=== PATIENT | female | born 1995 | race Caucasian/White ===

== ENCOUNTER 2018-10-14 13:50 | Inpatient (IN) | payer OTHER ==
[~2018-10-14 13:50] MED LIST: ISOVUE-370 76%-LOCM 1 ML ONE
[2018-10-14] MEDS ORDERED: Acetaminophen 325 MG TAB ONE (14:08)
[2018-10-14 14:33] LABS: #Monocytes 0.5 thou/uL (0.11-0.59); #Neutrophils 9.3 thou/uL (1.40-6.50); %Basophils 0.2 % (0.0-1.0); %Eosinophils 0.2 % (0.0-10.0); %Lymphocytes 9.2 % (21.0-51.0); %Monocytes 4.5 % (0.0-10.0); %Neutrophils 85.9 % (42.0-75.0); Hemoglobin 14.5 g/dL (12.0-16.0); Mean Corpuscular Hemoglobin 31.6 pg (27.0-31.0); Mean Corpuscular Volume 90.2 fL (78.0-98.0); Mean Platelet Volume 6.7 fL (7.4-10.4); Platelet Count 448 thou/uL (130-400); RBC Distribution Width 11.1 % (11.5-14.5); White Blood Cell (WBC) Count 10.8 thou/uL (4.8-10.8)
[2018-10-14 14:59] LABS: ALT (SGPT) 12 U/L (8-55); AST (SGOT) 18 U/L (5-34); Albumin 4.6 g/dL (3.5-5.0); Alkaline Phosphatase 56 U/L (40-150); Anion Gap 19 mmol/L (10-20); BUN (Urea Nitrogen) 13 mg/dL (7.0-18.7); Bilirubin, Total 0.7 mg/dL (0.2-1.2); Calc. Creatinine Clearance 0 mL/min (70-130); Calcium 10.4 mg/dL (7.8-10.44); Carbon Dioxide 19 mmol/L (22-29); Chloride 101 mmol/L (98-107); Estimated GFR-MDRD 88; Globulin 4.4 g/dL (2.4-3.5); Glucose 98 mg/dL (70-105); Potassium 3.1 mmol/L (3.5-5.1); Sodium 136 mmol/L (136-145)
[2018-10-14 15:08] LABS: BHCG - Serum Negative (NEGATIVE); INR-International Normal Ratio 1.1; PTT 31.6 SEC (22.9-36.1); Pregs Control Background? CLEAR/WHITE (CLR/WHITE); Pregs Control Bar Appear? YES (CONTROL BAR); Prothrombin Time 14.2 SEC (12.0-14.7)
--- NOTE | 2018-10-14 15:48 | CT ---
EXAM: CT pulmonary angiogram with IV contrast and 3-D MIP reconstructions PROVIDED CLINICAL HISTORY: None COMPARISON: None FINDINGS: There is no evidence for central or segmental pulmonary embolus. There is circumferential subpleural interstitial thickening involving primarily the lower to midlung zones bilaterally. The lungs are otherwise free of significant opacity. No pleural fluid or pneumothorax apparent. No evidence for tho racic lymph node enlargement. The airway appears patent and of normal caliber. Partially visualized ill-defined splenic hypodensity posteriorly inferiorly. This may be on the basis of phase of contrast . However, there is an apparent adjacent soft tissue density immediately medial to this portion of the spleen. This could represent a small splenule no these findings are incompletely characterized on the basis of this study. The osseous structures demonstrate no concerning lytic or blastic lesions. IMPRESSION: 1. No evidence for central or segmental pulmonary embolus. 2. Circumferential subpleural interstitial thickening involving the mid to lower lung zones bilateral ly, etiology and significance of which are uncertain. Correlation with concerns for infectious or inflammatory process recommended. 3. Ill-defined splenic hypodensities, potentially artifactual the basis of phase of contrast but soft tissue density adjacent to this region raises concern for other process such as infection. Follow-up CT of the abdomen with IV contrast in the portal venous phase is recommended.
[2018-10-14 16:03] LABS: Bacteria/HPF None Seen HPF (None Seen); Bilirubin Negative (Negative); Blood, Urine 1+ (Negative); Clarity Clear (Clear); Glucose, Urine (Dipstick) Normal (Negative); Leukocyte Negative Leu/uL (Negative); Mucous/LPF 1+ LPF (<2+); Nitrite Negative (Negative); Protein, Urine (Dipstick) Negative (Neg-Trace); Urobilinogen Normal mg/dL (Less than 2); WBC/HPF 0-3 HPF (0-3)
[2018-10-14] MEDS ORDERED: cefTRIAXone\\ROCEPHIN 2 GM VIAL ONE (16:38)
[2018-10-14] MEDS ORDERED: Azithromycin 500 MG VIAL ONE (17:54)
[2018-10-14 18:19] LABS: Troponin I Less than 0.010 ng/mL (< 0.028)
[2018-10-14] MEDS ORDERED: Sodium Chloride 0.9% 10 ML ONE (19:19)
[2018-10-14] MEDS ORDERED: Acetaminophen 325 MG TAB PO PRN (19:27)
[2018-10-14] MEDS ORDERED: Ondansetron PF 4 MG/2 ML Vial IVP PRN (19:27)
[2018-10-14] MEDS ORDERED: Ondansetron ODT 4 MG TAB SL PRN (19:27)
[2018-10-14 20:08] VITALS: BP 123/77; BMI 21.4
[2018-10-14] MEDS: Sodium Chloride 0.9% 1,000 ML IV SCH ×2 (20:20→23:48)
[2018-10-14 20:37] LABS: Troponin I Less than 0.010 ng/mL (< 0.028)
[2018-10-14] MEDS ORDERED: Potassium Chloride 20 MEQ TAB PO SCH (23:15)
[2018-10-15] MEDS ORDERED: Acetaminophen 325 MG TAB PO PRN (05:22)
[2018-10-15 08:07] LABS: #Lymphocytes 0.9 thou/uL (1.20-3.40); #Monocytes 0.5 thou/uL (0.11-0.59); %Basophils 0.1 % (0.0-1.0); %Eosinophils 0.3 % (0.0-10.0); %Lymphocytes 8.9 % (21.0-51.0); %Monocytes 4.9 % (0.0-10.0); %Neutrophils 85.9 % (42.0-75.0); Mean Corpuscular HGB CONC 33.4 g/dL (32.0-36.0); Mean Corpuscular Hemoglobin 30.5 pg (27.0-31.0); Mean Corpuscular Volume 91.2 fL (78.0-98.0); Mean Platelet Volume 6.4 fL (7.4-10.4); Platelet Count 352 thou/uL (130-400); RBC Distribution Width 11.2 % (11.5-14.5); Red Blood Cell (RBC) Count 4.28 mill/uL (4.20-5.40); White Blood Cell (WBC) Count 10.5 thou/uL (4.8-10.8)
[2018-10-15 08:29] LABS: Anion Gap 14 mmol/L (10-20); BUN (Urea Nitrogen) 5 mg/dL (7.0-18.7); Calc. Creatinine Clearance 123 mL/min (70-130); Calcium 9.1 mg/dL (7.8-10.44); Carbon Dioxide 18 mmol/L (22-29); Chloride 106 mmol/L (98-107); Estimated GFR-MDRD Greater than 90; Glucose 75 mg/dL (70-105); Potassium 3.9 mmol/L (3.5-5.1); Sodium 134 mmol/L (136-145)
[2018-10-15] MEDS: Enoxaparin Sodium 40 MG/0.4 ML SYRINGE SC SCH (09:17)
--- NOTE | 2018-10-15 11:36 | PDOC.HOSPP ---
- Subjective Encounter Date: 10/15/18 Encounter Time: 11:34 Subjective: Ms. Blandon was seen today in follow-up of Pneumonia. She says she notes some buring in the back of her throat, and it makes it hard to take a deep breath. She also notes a little chest tightness. She does not appear in any distress. - Objective Vital Signs & Weight: Vital Signs (12 hours) Temp Pulse Ox 10/15/18 11:32 99.5 F 10/15/18 08:07 97 10/15/18 07:21 97.7 F 10/15/18 04:00 98.2 F 10/15/18 00:03 98.9 F Weight Weight 115 lb 1.301 oz Most Recent Monitor Data Heart Rate from ECG 106 NIBP 121/73 NIBP BP-Mean 89 Respiration from ECG 20 SpO2 97 I&O: 10/14/18 10/15/18 10/16/18 06:59 06:59 06:59 Intake Total 1070 Balance 1070 Result Diagrams: 10/15/18 07:57 10/15/18 07:57 Hospitalist ROS - Medication Medications: Active Medications Generic Name Dose Route Start Last Admin Trade Name Freq PRN Reason Stop Dose Admin Enoxaparin Sodium 40 mg 10/15/18 09:00 10/15/18 09:17 Lovenox SC Not Given 0900 NATE - Exam Eye: PERRL, anicteric sclera Heart: RRR, no murmur, no gallops, no rubs, normal peripheral pulses Respiratory: CTAB, no wheezes, no rales, no ronchi, normal chest expansion, no tachypnea, normal percussion Gastrointestinal: soft, non-tender, non-distended, normal bowel sounds, no palpable masses, no hepatomegaly, no splenomegaly, no bruit Extremities: no cyanosis, no edema Hosp A/P (1) Pneumonia, community acquired Code(s): J18.9 - PNEUMONIA, UNSPECIFIED ORGANISM Status: Acute - Plan * Pneumonia- community acquired. She is much improved. Her vital signs are stable, and her oxygen saturations are in the mid to high 90's on room air. * Will offer some symptom relief * Home after her dose of Antibiotics this afternoon
[2018-10-15] MEDS ORDERED: Chloraseptic Spray 180 ml Bottle PO PRN (11:38)
[2018-10-15] MEDS ORDERED: Sucralfate 1 GM/10 ML UDCUP PO SCH (11:45)
[2018-10-15] MEDS: Azithromycin 500 MG in Sodium Chloride 0.9% 250 ML 250 ML IVPB SCH (12:27)
[2018-10-15] MEDS: cefTRIAXone\\ROCEPHIN 1 GM in Sodium Chloride 0.9% 100 ML IVPB SCH (12:30)
--- NOTE | 2018-10-15 13:52 | CON ---
DATE OF CONSULTATION: 10/15/2018 REASON FOR CONSULTATION: Pneumonia. CONSULTING PHYSICIAN: Dr. Degroot. HISTORY OF PRESENT ILLNESS: This is a 23-year-old female, who presented to the hospital with a 1-week history of chest pain, shortness of breath, cough, and subjective fever. She was found to have bilateral infiltrates on chest x-ray. She is currently hospitalized for treatment of community-acquired pneumonia. On further questioning, it turns out that she has been vaping THC. She says she has only done it a couple of times, but it was about 1 week ago. PAST MEDICAL HISTORY: Unremarkable. PAST SURGICAL HISTORY: PE tube placement. SOCIAL HISTORY: See above. Occasionally drinks alcohol. 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. ALLERGIES: PENICILLIN. REVIEW OF SYSTEMS: Twelve-point review of systems is otherwise negative. MEDICATIONS: Prior to admission, control pills. PHYSICAL EXAMINATION: VITAL SIGNS: O2 saturation currently 97% on room air, pulse 120, blood pressure 120/68, respiratory rate 18. GENERAL: She is awake and alert, in no distress. HEENT: Unremarkable. NECK: No adenopathy, JVD, or bruits. LUNGS: Inspiratory crackles bilaterally, best heard posteriorly. CARDIAC: S1-S2 regular without murmur. ABDOMEN: Soft, nontender. EXTREMITIES: No clubbing, cyanosis, or edema. LABORATORY DATA: White blood cell count 10.5, hematocrit 39, platelet count 352. Sodium 134, potassium 3.9, chloride 106, CO2 of 18, BUN 5, creatinine 0.6, glucose 75. IMAGING STUDIES: CT was reviewed, has bilateral infiltrates. ASSESSMENT: Community-acquired pneumonia versus inhalational injury due to vaping. I would favor this probably being vaping injury given recent exposure to THC cartridges. PLAN: 1. Continue antibiotics. 2. Continue to monitor vital signs for next 24 hours. 3. Add steroids. 4. She will need close followup after discharge. Hopefully, she can go home tomorrow. Job ID: [id number]
[2018-10-15] MEDS: methylPREDNISolone Sod Succ 40 MG VIAL IVP SCH ×2 (14:30→20:10)
[2018-10-15] MEDS ORDERED: cefTRIAXone\\ROCEPHIN 1 GM in Sodium Chloride 0.9% 100 ML IVPB SCH (17:00)
[2018-10-15] MEDS ORDERED: Azithromycin 500 MG in Sodium Chloride 0.9% 250 ML 250 ML IVPB SCH (18:00)
[2018-10-16] MEDS: methylPREDNISolone Sod Succ 40 MG VIAL IVP SCH ×2 (02:29→08:26)
--- NOTE | 2018-10-16 08:02 | HP ---
PRIMARY CARE DOCTOR: The patient has no PCP. CODE STATUS: Full code. TIME OF EVALUATION: 10:00 p.m. CHIEF COMPLAINT: Shortness of breath. HISTORY OF PRESENT ILLNESS: A 23 years old female patient with past medical history of no significant medical problems, only taking oral contraceptive pills. The patient transferred from [facility] ER as the patient was having fever for the past 24 hours, associated with cough with scant sputum production and also generalized weakness, nausea, and chest pain. The symptoms were mild to moderate with no clear triggers, no alleviating factors. Has been gradually worsening. In [facility], they have no CT to rule out pulmonary embolism; therefore, the patient was transferred here. CT was done and did not show any PE, however, showed bilateral pneumonia. The patient was feverish while in the hospital. REVIEW OF SYSTEMS: All other systems were reviewed and negative except for the findings mentioned above. PAST MEDICAL HISTORY: No past medical history. PAST SURGICAL HISTORY: Ear tubes and wisdom teeth surgery. PSYCHIATRIC HISTORY: Anxiety and depression. SOCIAL HISTORY: The patient drinks socially once a month. No drugs. No smoking history. Lives at home with family. FAMILY HISTORY: The patient reported mother having diabetes. KNOWN ALLERGIES: Penicillin. REPORTED MEDICATIONS: Junel. PHYSICAL EXAMINATION: VITAL SIGNS: On presentation, blood pressure 163/87, heart rate 97, respiratory rate was 22, temperature 101.6. Pain was 6/10. Oxygen saturation was 96% on room air. GENERAL APPEARANCE: The patient is alert, oriented, not in acute distress. HEENT: Eyes, normal conjunctivae. Moist oral mucosa. Anicteric. No JVD. RESPIRATORY: Bilateral air entry. No rales or wheezes. Symmetric expansion. CARDIOVASCULAR: Normal rate regular rhythm. No murmurs. No edema. ABDOMEN: Soft. Normal bowel sounds. MUSCULOSKELETAL: Baseline range of motion and strength. SKIN: Warm and intact. No pallor. No rash. No redness. Capillary refill seems to be intact. NEURO: No evidence of any new focal weakness. Cranial nerves seems to be intact. PSYCH: The patient is in good mood. No anxiety. Optimal judgment. DIAGNOSTIC STUDIES: EKG was done. The patient has normal sinus rhythm with a rate of 98 with some nonspecific T wave abnormalities. CT chest was done and showed: 1. No pulmonary embolism. 2. Circumferential subpleural interstitial thickening involving the mid to lower lung zones bilaterally. The etiology is significant, which is uncertain. Correlation with concern for infectious or inflammatory process recommended. 3. Ill-defined likely hypodensities potentially artifact on the basis of phase of contrast but soft tissue density adjacent to this region raise concern for other process such as infection. Followup CT of the abdomen with IV contrast in the portal venous phase is recommended. LABORATORY DATA: Reviewed. The patient has white count of 10.8, hemoglobin 14.5, MCV 90.2, platelet count 248. Coagulation; PT 14.2, INR 1.1, PTT 31.6. Chemistries; sodium 136, potassium 3.1, chloride 101, carbon dioxide 19, anion gap 19, BUN 13, creatinine 0.81, GFR 88, glucose 98, lactic acid 1.4, calcium 10.4, total bilirubin 0.7, AST 18, ALT 12, alkaline phosphatase 66. Troponin was negative x2. Serum total protein 9.0, albumin 4.6, globulin 4.4. Urine was done and was negative seen on the urine. The patient has some ketonuria. ASSESSMENT AND PLAN: The patient will be placed in the hospital with following medical problems: 1. Acute multilobar pneumonia leading to sepsis. The patient has been started on antibiotics. The patient is taking Rocephin and Zithromax. We will monitor and treat accordingly. 2. Hypokalemia, potassium 3.1. This is mild. We will monitor, we will replace electrolytes as needed. 3. Sepsis. The patient has tachycardia, , fever. Treatment as above. 4. Deep venous thrombosis prophylaxis. Job ID: [id number]
[2018-10-16] MEDS: Enoxaparin Sodium 40 MG/0.4 ML SYRINGE SC SCH (08:26)
--- NOTE | 2018-10-16 09:35 | PRG ---
DATE OF SERVICE: 10/16/2018 SUBJECTIVE: The patient is doing better. She is off oxygen. OBJECTIVE: VITAL SIGNS: On exam, temperature is 97.7, pulse 75, and blood pressure 125/69. HEENT: Unremarkable. NECK: No JVD. LUNGS: Diffuse inspiratory crackles bilaterally. CARDIAC: S1 and S2. Regular. ABDOMEN: Soft. EXTREMITIES: No edema. ASSESSMENT: Probable THC vaping-related lung injury versus infectious pneumonitis. PLAN: Given that she has no hypoxemia, she can go home. I would send her home on prednisone 40 mg daily for a week and Omnicef and Zithromax. I have written prescription given that to the nurse. I have instructed the patient to follow up in 2 to 3 weeks for chest x-ray. Job ID: [id number]
[2018-10-16 11:17] VITALS: TEMP 98.1
[2018-10-16] MEDS: cefTRIAXone\\ROCEPHIN 1 GM in Sodium Chloride 0.9% 100 ML IVPB SCH (11:35)
--- NOTE | 2018-10-16 12:38 | PDOC.HOSPP ---
- Subjective Encounter Date: 10/16/18 Encounter Time: 12:36 Subjective: Ms. Blandon was seen today in follow-up of Pneumonia. She says she feels much better today. - Objective Vital Signs & Weight: Vital Signs (12 hours) Temp Pulse Ox 10/16/18 11:17 98.1 F 10/16/18 08:09 94 L 10/16/18 07:18 97.7 F Weight Weight 1.767 oz Most Recent Monitor Data Heart Rate from ECG 64 NIBP 122/65 NIBP BP-Mean 84 Respiration from ECG 24 SpO2 95 I&O: 10/15/18 10/16/18 10/17/18 06:59 06:59 06:59 Intake Total 1070 3049 Balance 1070 3049 Result Diagrams: 10/15/18 07:57 10/15/18 07:57 Hospitalist ROS - Medication Medications: Active Medications Generic Name Dose Route Start Last Admin Trade Name Freq PRN Reason Stop Dose Admin Enoxaparin Sodium 40 mg 10/15/18 09:00 10/16/18 08:26 Lovenox SC Not Given 0900 NATE Azithromycin 500 mg/ Sodium 250 mls @ 250 mls/hr 10/15/18 13:00 10/15/18 12: 27 Chloride IVPB 250 mls 1300 NATE Administration Ceftriaxone Sodium 1 gm/ 100 mls @ 200 mls/hr 10/15/18 12:00 10/16/18 11:35 Sodium Chloride IVPB 100 mls 1200 NATE Administration Methylprednisolone Sodium Succinate 40 mg 10/15/18 14:00 10/16/18 08:26 Solu-Medrol IVP 40 mg 0200,0800,1400,2000 NATE Administration Phenol 0 ml 10/15/18 11:38 10/15/18 12:28 Chloraseptic Babbitt 180 Ml Bot PO 1 spr BIDPRN PRN Administration Sore Throat - Exam Eye: PERRL, anicteric sclera Heart: RRR, no murmur, no gallops, no rubs, normal peripheral pulses Respiratory: CTAB, no wheezes, no rales, no ronchi, normal chest expansion Extremities: no edema Hosp A/P (1) Pneumonia, community acquired Code(s): J18.9 - PNEUMONIA, UNSPECIFIED ORGANISM Status: Acute - Plan * Pneumonia- community acquired. She is much improved. * She has been cleared for discharge by [facility]
[2018-10-16] MEDS: Azithromycin 500 MG in Sodium Chloride 0.9% 250 ML 250 ML IVPB SCH (13:07)
--- NOTE | 2018-10-17 03:35 | DIS ---
DATE OF ADMISSION: 10/14/2018 DATE OF DISCHARGE: 10/16/2018 DISCHARGE DISPOSITION: Home. DISCHARGE DIAGNOSES: 1. Community-acquired pneumonia. 2. History of anxiety and depression. DISCHARGE MEDICATIONS: 1. Prednisone 40 mg daily for seven days. 2. Omnicef 300 mg twice daily. 3. Azithromycin 250 mg daily for six days. 4. Continue estradiol 1 tablet daily. IMAGING DONE DURING THE HOSPITAL STAY: The patient had a CT angiogram of the chest in which there was no evidence for central or segmental pulmonary embolism and there was some subpleural interstitial thickening involving the mid to lower lung zones bilaterally. The significance is unknown. CODE STATUS: Full code. ALLERGIES: TO PENICILLIN. HOSPITAL COURSE: Ms. Blandon is a pleasant 23-year-old female, who presented to the emergency room with cough and chest tightness and shortness of breath. She was tachycardic as well and therefore, there was concern that she could potentially have a pulmonary embolism. For this reason, she was transferred to our facility and a CT angiogram was done. It was noted that she had bilateral lower lobe interstitial infiltrates. She was admitted and started on IV antibiotics. She was also seen by Pulmonology because there was concern that she was using the E cigarettes what we call vaping. She was monitored overnight and did not develop any hypoxia or any difficulty and instead improved, and was able to be discharged home and to have close followup with Dr. Daniel in the outpatient setting. Job ID: [id number]
--- NOTE | 2018-10-18 01:30 | PQF ---
[employer] Operator Crystal Reports Winform Viewer MANUELA CARRIZALES TONI MD [id number] [address] [place] [address] [id number] CLINICAL DOCUMENTATION CLARIFICATION FORM: POST DISCHARGE Addendum to original discharge summary date: ____ Late entry note date: __ DATE: 10/17/18 ATTN: Primo Wiseman Please exercise your independent, professional judgment in responding to the clarification form. Clinical indicators are provided on the bottom of this form for your review Can you please further specify if Sepsis is ruled in or ruled out? Sepsis [ X ] Ruled in diagnosis [ X ] Continue to treat [ ] Resolved [ ] Ruled out diagnosis [ ] Cannot rule out diagnosis [ ] Other diagnosis please specify [ ] Unable to determine In addition, please specify: Present on Admission (POA): [ X ] Yes [ ] No [ ] Unable to determine For continuity of documentation, please document condition throughout progress notes and discharge summary. Thank You. CLINICAL INDICATORS ED Provider Report 10/14 pg1.- "23 years old female presents to the ER with dyspnea and chest pain since Tuesday, worsening over the last 24hours with fever" ED Provider Report 10/14 pg2- "Vital signs BP 163/87, Pulse:97, Respi: 22(labored) , Temp 101.6" ED Provider Report 10/14 pg5- "Diagnosis: final: Primary: Pneumonia, additional: Sepsis" H and P 10/14 pg.1- "CT was done and did not showed any PE, however, showed bilateral pneumonia" H and P 10/14 pg.2- "Laboratory data: WBC 10.8" H and P 10/14 pg.2- "Acute multilobar pneumonia leading to sepsis" H and P 10/14 pg.3- "Sepsis. the patient has tachycardia,fever" RISK FACTORS Acute multilobar pneumonia-H and P 9 pg.2 TREATMENTS Chest/Thorax CTA 10/14 Pulmo Consult- 10/15 Dr. Daniel IV Fluids- APR 15 Azithromycin (Zithromax)500mg IV -APR 15 Ceftriaxone (Rocephin) 2g IV- APR 15 (This form is maintained as a part of the permanent medical record) 2014 [employer]. All Rights Reserved Chava [email or web address] [not provided] MTDD
== END 2018-10-16 13:19 | disposition home or self-care (01) | DRG 195 ==
LOC: ERS 13:50 → OBSVTOIN 18:49 → 3SE 18:49 → IMCU/EMU 21:24
PROVIDERS: ADMIT Internal Medicine; ATTEND Internal Medicine
DX: J18.1 Lobar pneumonia, unspecified organism (principal); F41.9 Anxiety disorder, unspecified; F32.9 Major depressive disorder, single episode, unspecified; E87.6 Hypokalemia; F17.290 Nicotine dependence, other tobacco product, uncomplicated; Z88.0 Allergy status to penicillin
CPT/HCPCS: 36415; 71275; 80048; 80053; 81003; 81015; 83605; 84484; 84703; 85025; 85610; 85730; 87040; 87086; 87804; 93005; 94760; 96361; 96365; 96367; J0456; J0696; J1650; J2920; J3490; J7050; Q9966

== ENCOUNTER 2018-10-30 12:36 | Outpatient (CLI) | payer OTHER ==
--- NOTE | 2018-10-30 13:08 | RAD ---
EXAM: Chest 2 views: HISTORY: Dyspnea COMPARISON: None. FINDINGS: There is a normal-sized cardiomediastinal silhouette. There is no evidence of consolidation, mass, or pleural effusion. The bones are unremarkable. IMPRESSION: No evidence of acute cardiopulmonary disease
== END 2018-10-30 12:37 | disposition home or self-care (01) ==
LOC: RAD 12:36
PROVIDERS: ATTEND Internal Medicine Critical Care Medicine
DX: R06.00 Dyspnea, unspecified (principal)
CPT/HCPCS: 71046